=== PATIENT | female | born 1970 | race Caucasian/White ===

== ENCOUNTER → 2018-12-10 | Outpatient (REF) ==
[~2018-12-10] MED LIST: COLACE 100100 MG/CAP PO; MOTRIN 600600 MG/TAB PO; NORCO 325 MG-51 TAB PO; PERCOCET 325 MG1 TA2 PO; ZOFRAN 4MG T4 MG/TAB PO
== END ==
LOC: ZLAB.WCH 13:53
DX: Z01.89 Encounter for other specified special examinations (principal)

== ENCOUNTER → 2019-07-07 | Outpatient (CLI) | payer OTHER | LOC: MC.RAD 08:22 | DX: Z98.890 Other specified postprocedural states (principal); Z98.82 Breast implant status | CPT/HCPCS: G0279 ==